=== PATIENT | female | born 1975 | race Caucasian/White ===

== ENCOUNTER 2017-09-16 19:21 | Observation (INO) | payer BC, OTHER ==
--- NOTE | 2017-09-16 20:33 | ED ---
Abdominal Pain HPI - General Chief Complaint: Abdominal Pain Stated Complaint: abd pain Time Seen by Provider: 09/16/17 20:33 Source: patient Mode of arrival: wheelchair Limitations: no limitations - History of Present Illness Initial Comments: Patient presents with right lower quadrant abdominal pain for approximately 2 hours. Patient states pain started while she was sitting in a chair watching TV. Patient states pain is constant aching, with intermittent sharp shooting. Patient states last vomiting yesterday was normal. States she does not feel constipated today. Denies diarrhea. Denies vaginal bleeding or discharge. Patient denies any urinary symptoms, including hematuria, hesitancy, frequency. Patient denies nausea, vomiting. Patient states she has history of umbilical hernia repair. MD Complaint: abdominal pain - Related Data Home Medications Medication Instructions Recorded Confirmed Biotin 5 mg PO DAILY 09/16/17 09/16/17 Cyanocobalamin (Vitamin B-12) 1,000 mcg PO DAILY 09/16/17 09/16/17 [Vitamin B-12] Thyroid,Pork [Thyroid] 30 mg PO DAILY 09/16/17 09/16/17 Allergies Allergy/AdvReac Type Severity Reaction Status Date / Time orange flavor Allergy Anaphylaxis Verified 09/16/17 20:53 Review of Systems ROS Statement: Those systems with pertinent positive or pertinent negative responses have been documented in the HPI. ROS Other: All systems not noted in ROS Statement are negative. Constitutional: Denies: fever, chills, weakness Eyes: Denies: vision change ENT: Denies: throat pain, congestion Respiratory: Denies: cough, dyspnea Cardiovascular: Denies: chest pain, palpitations Endocrine: Denies: fatigue Gastrointestinal: Reports: abdominal pain. Denies: nausea, vomiting, diarrhea, constipation, hematemesis, melena, hematochezia Genitourinary: Denies: urgency, dysuria, frequency, hematuria, discharge, abnormal menses Musculoskeletal: Denies: back pain, arthralgia, myalgia Skin: Denies: rash, change in color Neurological: Denies: headache, confusion Past Medical History Additional Past Medical History / Comment(s): HERNIA History of Any Multi-Drug Resistant Organisms: None Reported Past Surgical History: Section, Tonsillectomy Past Anesthesia/Blood Transfusion Reactions: Motion Sickness, Postoperative Nausea & Vomiting (PONV) Past Psychological History: No Psychological Hx Reported Smoking Status: Never smoker Past Alcohol Use History: None Reported Past Drug Use History: None Reported - Past Family History Father Family Medical History: Cancer General Exam - General Exam Comments Initial Comments: Sitting up on side of bed holding right lower quadrant. Smiling, calm, pleasant. Not ill appearing. Patient of significant pain when trying to lay flat on bed Limitations: no limitations General appearance: alert Head exam: Present: atraumatic, normocephalic Eye exam: Present: normal appearance, PERRL, EOMI ENT exam: Present: mucous membranes moist Neck exam: Present: normal inspection Respiratory exam: Present: normal lung sounds bilaterally. Absent: respiratory distress, wheezes, rales, rhonchi, stridor Cardiovascular Exam: Present: regular rate, normal rhythm GI/Abdominal exam: Present: soft, tenderness, guarding (Voluntary guarding right lower quadrant. Obese. Defects and umbilicus, no protruding hernia appreciated. Tenderness right lower quadrant, difficult to examine because of voluntary guarding of patient. Right groin nontender, no inguinal hernias appreciated.). Absent: distended, rebound Extremities exam: Present: normal inspection Back exam: Present: normal inspection Neurological exam: Present: alert, oriented X3 Psychiatric exam: Present: normal affect, normal mood Skin exam: Present: warm, dry, intact, normal color. Absent: rash, cyanosis, diaphoretic, erythema Course Vital Signs 09/16/17 09/16/17 19:48 21:42 Temperature 99 F 98.6 F Pulse Rate 85 89 Respiratory 20 18 Rate Blood Pressure 137/71 130/67 O2 Sat by Pulse 100 98 Oximetry Medical Decision Making - Medical Decision Making IV fluids, morphine, Zofran ordered. White blood cell count 11.9 Ultrasound of pelvis shows no acute process CAT scan shows signs of possible mild appendicitis, showed 6 cm ventral hernia containing fat, but no bowel. Patient reevaluated, states she still having pain, still has right lower quadrant tenderness. Spoke with general surgeon Dr. Baer, updated with patient condition results, states no surgical intervention at this time, agrees with observation and antibiotics. Spoke with Dr. Reyes, updated with patient condition results, surgical recommendations, agrees with observation. Requests surgery consult be placed to Dr. Guthrie. Patient updated with all results and plan. Abx ordered. - Lab Data Result diagrams: 09/16/17 21:20 09/16/17 21:20 Lab Results 09/16/17 09/16/17 09/16/17 Range/Units 21:20 21:20 21:20 WBC (3.8-10.6) k/uL RBC (3.80-5.40) m/uL Hgb (11.4-16.0) gm/dL Hct (34.0-46.0) % MCV (80.0-100.0) fL MCH (25.0-35.0) pg MCHC (31.0-37.0) g/dL RDW (11.5-15.5) % Plt Count (150-450) k/uL Neutrophils % % Lymphocytes % % Monocytes % % Eosinophils % % Basophils % % Neutrophils # (1.3-7.7) k/uL Lymphocytes # (1.0-4.8) k/uL Monocytes # (0-1.0) k/uL Eosinophils # (0-0.7) k/uL Basophils # (0-0.2) k/uL Sodium 141 (137-145) mmol/L Potassium 4.2 (3.5-5.1) mmol/L Chloride 103 (98-107) mmol/L Carbon Dioxide 20 L (22-30) mmol/L Anion Gap 18 mmol/L BUN 12 (7-17) mg/dL Creatinine 0.70 (0.52-1.04) mg/dL Est GFR (CKD-EPI)AfAm >90 (>60 ml/min/1.73 sqM) Est GFR (CKD-EPI)NonAf >90 (>60 ml/min/1.73 sqM) Glucose 97 (74-99) mg/dL Plasma Lactic Acid Roman (0.7-2.0) mmol/L Calcium 10.1 (8.4-10.2) mg/dL Urine Color Yellow Urine Appearance Cloudy H (Clear) Urine pH 5.5 (5.0-8.0) Ur Specific [place] 1.015 (1.001-1.035) Urine Protein Negative (Negative) Urine Glucose (UA) Negative (Negative) Urine Ketones 3+ H (Negative) Urine Blood Trace H (Negative) Urine Nitrite Negative (Negative) Urine Bilirubin Negative (Negative) Urine Urobilinogen <2.0 (<2.0) mg/dL Ur Leukocyte Esterase Moderate H (Negative) Urine RBC 3 (0-5) /hpf Urine WBC 14 H (0-5) /hpf Ur Squamous Epith Cells 2 (0-4) /hpf Urine HCG, Qual Not Detected (Not Detectd) 09/16/17 09/16/17 Range/Units 21:20 21:20 WBC 11.9 H (3.8-10.6) k/uL RBC 4.81 (3.80-5.40) m/uL Hgb 14.1 (11.4-16.0) gm/dL Hct 42.5 (34.0-46.0) % MCV 88.3 (80.0-100.0) fL MCH 29.3 (25.0-35.0) pg MCHC 33.2 (31.0-37.0) g/dL RDW 12.9 (11.5-15.5) % Plt Count 334 (150-450) k/uL Neutrophils % 77 % Lymphocytes % 14 % Monocytes % 7 % Eosinophils % 1 % Basophils % 0 % Neutrophils # 9.2 H (1.3-7.7) k/uL Lymphocytes # 1.6 (1.0-4.8) k/uL Monocytes # 0.8 (0-1.0) k/uL Eosinophils # 0.1 (0-0.7) k/uL Basophils # 0.0 (0-0.2) k/uL Sodium (137-145) mmol/L Potassium (3.5-5.1) mmol/L Chloride (98-107) mmol/L Carbon Dioxide (22-30) mmol/L Anion Gap mmol/L BUN (7-17) mg/dL Creatinine (0.52-1.04) mg/dL Est GFR (CKD-EPI)AfAm (>60 ml/min/1.73 sqM) Est GFR (CKD-EPI)NonAf (>60 ml/min/1.73 sqM) Glucose (74-99) mg/dL Plasma Lactic Acid Roman 1.1 (0.7-2.0) mmol/L Calcium (8.4-10.2) mg/dL Urine Color Urine Appearance (Clear) Urine pH (5.0-8.0) Ur Specific [place] (1.001-1.035) Urine Protein (Negative) Urine Glucose (UA) (Negative) Urine Ketones (Negative) Urine Blood (Negative) Urine Nitrite (Negative) Urine Bilirubin (Negative) Urine Urobilinogen (<2.0) mg/dL Ur Leukocyte Esterase (Negative) Urine RBC (0-5) /hpf Urine WBC (0-5) /hpf Ur Squamous Epith Cells (0-4) /hpf Urine HCG, Qual (Not Detectd) Disposition Clinical Impression: RLQ abdominal pain Disposition: ADMITTED IP TO THIS [facility] Condition: Good Is patient prescribed a controlled substance at discharge?: No Referrals: Valentin Reyes DO [Primary Care Provider] - 1-2 days
[2017-09-16] MEDS ORDERED: SODIUM CHLORIDE 0.9% 1,000 ML IV STA (21:08)
[2017-09-16] MEDS ORDERED: MORPHINE SULFATE 4MG/4ML SYRG IVP ONE (21:08)
[2017-09-16] MEDS: ONDANSETRON 4 MG/2 ML VIAL IVP STA (21:29)
[2017-09-16 21:39] LABS: Appearance,Urine Cloudy (Clear); Bilirubin,Urine Negative (Negative); Blood,Urine Trace (Negative); Color,Urine Yellow; Glucose,Urine (UA) Negative (Negative); Ketones,Urine 3+ (Negative); Leukocyte Esterase,Urine Moderate (Negative); Nitrite,Urine Negative (Negative); PH, Urine 5.5 (5.0-8.0); Protein,Urine Negative (Negative); RBC,Urine 3 /hpf (0-5); Specific Gravity,Urine 1.015 (1.001-1.035); Squamous Epithelial Cell,Urine 2 /hpf (0-4); Urobilinogen,Urine <2.0 mg/dL (<2.0); WBC,Urine 14 /hpf (0-5)
[2017-09-16 21:40] LABS: Basophils % (A) 0 %; Eosinophils # (A) 0.1 k/uL (0-0.7); Eosinophils % (A) 1 %; HCT 42.5 % (34.0-46.0); HGB 14.1 gm/dL (11.4-16.0); Lymphocytes # (A) 1.6 k/uL (1.0-4.8); Lymphocytes % (A) 14 %; MCH 29.3 pg (25.0-35.0); MCHC 33.2 g/dL (31.0-37.0); MCV 88.3 fL (80.0-100.0); Mean Platelet Volume 8.1; Monocytes # (A) 0.8 k/uL (0-1.0); Monocytes % (A) 7 %; Neutrophils # (A) 9.2 k/uL (1.3-7.7); Neutrophils % (A) 77 %; Platelet Count 334 k/uL (150-450); RBC 4.81 m/uL (3.80-5.40); RDW 12.9 % (11.5-15.5); WBC 11.9 k/uL (3.8-10.6)
[2017-09-16 22:07] LABS: Anion Gap 18 mmol/L; Blood Urea Nitrogen 12 mg/dL (7-17); Calcium 10.1 mg/dL (8.4-10.2); Carbon Dioxide 20 mmol/L (22-30); Chloride 103 mmol/L (98-107); Glucose 97 mg/dL (74-99); Potassium 4.2 mmol/L (3.5-5.1); Sodium 141 mmol/L (137-145)
--- NOTE | 2017-09-16 22:30 | CT ---
EXAMINATION TYPE: CT abdomen pelvis wo con DATE OF EXAM: 09/16/2017 COMPARISON: NONE HISTORY: RLQ pain CT DLP: 1043.7 mGycm Automated exposure control for dose reduction was used. TECHNIQUE: Helical acquisition of images was performed from the lung bases through the pelvis. FINDINGS: Lung bases are clear. There is no pleural effusion. Heart size is normal. Liver spleen pancreas appear normal. Gallbladder appears normal. Bile ducts are not dilated. There is ventral hernia that contains omental fat. There is no adrenal mass. Kidneys have normal size and contour. There is no hydronephrosis. Ureters a re not dilated. There is no retroperitoneal adenopathy. There is no ascites. Bladder distends smoothl y. Uterus appears normal. There is no evidence of pelvic mass. I see no intestinal wall thickening. There are no dilated loops. There is very minimal fat stranding around the appendix. Appendix measures 7 to 8 mm. I see no bony destructive process. There is narrowi ng of L5-S1 disc space. IMPRESSION: THE APPENDIX IS BORDERLINE ENLARGED AND THERE IS VERY MINIMAL SUBTLE FAT STRANDING AROUND THE APPENDI X THAT COULD RELATE TO MILD APPENDICITIS. 6 CM MIDLINE VENTRAL HERNIA THAT CONTAINS OMENTAL FAT.
--- NOTE | 2017-09-16 22:47 | US ---
EXAMINATION TYPE: US transvaginal DATE OF EXAM: 09/16/2017 COMPARISON: NONE CLINICAL HISTORY: RLQ pain. TECHNIQUE: Transvaginal (TV). Date of LMP: 09/03/2017 EXAM MEASUREMENTS: Uterus: 8.4 x 4.3 x 6.0 cm Endometrial Stripe: 0.4 cm Right Ovary: 2.8 x 1.3 x 2.8 cm Left Ovary: 3.5 x 1.2 x 2.6 cm 1. Uterus: Anteverted 2. Endometrium: wnl 3. Right Ovary: wnl 4. Left Ovary: wnl Spectral, color and waveform doppler imaging shows good arterial and venous flow within the ovaries ; there is no evidence for ovarian torsion. 5. Bilateral Adnexa: wnl 6. Posterior cul-de-sac: wnl IMPRESSION: Normal transvaginal pelvic sonogram.
[2017-09-17] MEDS ORDERED: MORPHINE ORAL SOLN 10 MG/5 ML CUP PO PRN (00:43)
[2017-09-17] MEDS ORDERED: NALOXONE 0.4 MG/ML 1 ML VIAL IV PRN (00:43)
[2017-09-17] MEDS ORDERED: cefOXitin IN SWFI 2 GM/10 ML SYRINGE IVP STA (00:51)
[2017-09-17 02:05] VITALS: BMI 34.7
[2017-09-17] MEDS: SODIUM CHLORIDE 0.9% 1,000 ML IV SCH ×2 (02:11→20:01)
--- NOTE | 2017-09-17 09:48 | P.GSCN ---
History of Present Illness Consult date: 09/17/17 Reason for Consult: Right lower quadrant pain History of present illness: 42-year-old female being seen at the request of the attending for a surgical eval for right lower quadrant abdominal pain onset approximately 2-3 hours prior to admission. Patient stated that there was no change in diet ,activity or medication she was in her usual state of health when the patient developed a sudden onset of right lower quadrant pain. Described the pain as a sharp intermittent shooting across the right lower abdomen radiating up. Patient denies any change in bowel habits denies any vaginal bleeding or discharge. Denies any urinary symptoms. No blood noted no urgency frequency burning on urination. Denied any nausea vomiting. Patient states since being admitted the pain has persisted. Patient did have a transvaginal ultrasound to evaluate the right lower quadrant pain was normal sonogram. Computed tomography scan of the abdomen pelvis without contrast the report was reviewed the appendix is borderline enlarged very subtle fat stranding around the appendix could relate to mild appendicitis the white count 11.9 urine clear electrolytes within normal limits temp 98.2 low-grade temp on admission of 99 abdominal pain persist right lower quadrant Patient's past surgical history 45 year prior umbilical hernia repair, , tonsillectomy, Past medical history hypothyroid, B12 deficient Review of Systems Essentially unremarkable except as mentioned in the present illness Past Medical History Past Medical History: Thyroid Disorder Additional Past Medical History / Comment(s): HERNIA, hashimotos History of Any Multi-Drug Resistant Organisms: None Reported Past Surgical History: Section, Tonsillectomy Past Anesthesia/Blood Transfusion Reactions: Motion Sickness, Postoperative Nausea & Vomiting (PONV) Past Psychological History: No Psychological Hx Reported Additional Psychological History / Comment(s): SEVERE ANXIETY IN HOSPITAL SETTING.STATED "VERY ANXIOUS IF A CATHETER HAS TO BE INSERTED DUE TO HX OF SEXUAL ABUSE A CHILD." Smoking Status: Never smoker Past Alcohol Use History: None Reported Past Drug Use History: None Reported - Past Family History Father Family Medical History: Cancer Medications and Allergies Home Medications Medication Instructions Recorded Confirmed Type Biotin 5 mg PO DAILY 09/16/17 09/16/17 History Cyanocobalamin (Vitamin B-12) 1,000 mcg PO DAILY 09/16/17 09/16/17 History [Vitamin B-12] Thyroid,Pork [Thyroid] 30 mg PO DAILY 09/16/17 09/16/17 History Allergies Allergy/AdvReac Type Severity Reaction Status Date / Time orange flavor Allergy Anaphylaxis Verified 09/16/17 20:53 Surgical - Exam Vital Signs Temp Pulse Resp BP Pulse Ox 99 F 85 20 137/71 100 09/16/17 19:48 09/16/17 19:48 09/16/17 19:48 09/16/17 19:48 09/16/17 19:48 GENERAL APPEARANCE: 42-year-old female patient is alert, sitting up in bed continues to report having right lower quadrant abdominal pain. Medication effective for pain control VITAL SIGNS: Reviewed HEENT: Head is normocephalic and atraumatic. Pupils are equal and reactive. The nares are patent. Oropharynx is clear without lesions. NECK: Supple without lymphadenopathy. Traches midline. HEART: S1, S2. Regular rate and rhythm. Denying chest pain no murmur noted LUNGS: No crackles or wheezes are heard. Adequate air movement bilaterally ABDOMEN: Soft, mild right lower quadrant abdominal tenderness nondistended with good bowel sounds. No peritoneal signs. No palpable organomegaly or masses. No nausea no vomiting no stooling no difficulty in urinating EXTREMITIES: Normal skin color and turgor. No cyanosis, rash, ulceration, clubbing or edema. Radial pedal pulses are 2/4 bilaterally. NEUROLOGICAL: No focal deficits. Strength and sensation are grossly intact. Results - Labs 09/16/17 21:20 09/16/17 21:20 Abnormal Lab Results - Last 24 Hours (Table) 09/16/17 09/16/17 09/16/17 Range/Units 21:20 21:20 21:20 WBC 11.9 H (3.8-10.6) k/uL Neutrophils # 9.2 H (1.3-7.7) k/uL Carbon Dioxide 20 L (22-30) mmol/L Urine Appearance Cloudy H (Clear) Urine Ketones 3+ H (Negative) Urine Blood Trace H (Negative) Ur Leukocyte Esterase Moderate H (Negative) Urine WBC 14 H (0-5) /hpf Diabetes panel 09/16/17 Range/Units 21:20 Sodium 141 (137-145) mmol/L Potassium 4.2 (3.5-5.1) mmol/L Chloride 103 (98-107) mmol/L Carbon Dioxide 20 L (22-30) mmol/L BUN 12 (7-17) mg/dL Creatinine 0.70 (0.52-1.04) mg/dL Glucose 97 (74-99) mg/dL Calcium 10.1 (8.4-10.2) mg/dL Calcium panel 09/16/17 Range/Units 21:20 Calcium 10.1 (8.4-10.2) mg/dL Pituitary panel 09/16/17 Range/Units 21:20 Sodium 141 (137-145) mmol/L Potassium 4.2 (3.5-5.1) mmol/L Chloride 103 (98-107) mmol/L Carbon Dioxide 20 L (22-30) mmol/L BUN 12 (7-17) mg/dL Creatinine 0.70 (0.52-1.04) mg/dL Glucose 97 (74-99) mg/dL Calcium 10.1 (8.4-10.2) mg/dL Adrenal panel 09/16/17 Range/Units 21:20 Sodium 141 (137-145) mmol/L Potassium 4.2 (3.5-5.1) mmol/L Chloride 103 (98-107) mmol/L Carbon Dioxide 20 L (22-30) mmol/L BUN 12 (7-17) mg/dL Creatinine 0.70 (0.52-1.04) mg/dL Glucose 97 (74-99) mg/dL Calcium 10.1 (8.4-10.2) mg/dL Assessment and Plan Assessment: Impression Present on admission right lower quadrant pain suspect likely due to acute appendicitis Present on admission leukocytosis low-grade temp likely due to appendicitis not ruled out CAT scan abdomen and pelvis without contrast report indicates appendix is borderline enlarged could relate to mild appendicitis Plan Patient will be scheduled today for laparoscopic appendectomy per IV fluid for hydration Nothing by mouth for planned procedure Pain control Resume home meds when appropriate DVT and GI prophylaxis Surgical consultation note dictated for The above impression and plan of care have been discussed and directed by signing physician. Zoe Rodas nurse practitioner acting as scribe for signing physician.
[2017-09-17] MEDS ORDERED: MORPHINE SULFATE 4MG/4ML SYRG IVP PRN (09:50)
[2017-09-17] MEDS: PANTOPRAZOLE 40 MG/10 ML VIAL IVP SCH (10:34)
[2017-09-17] MEDS ORDERED: IV FLUID CONTINUATION 1,000 ML IV ONE (11:12)
[2017-09-17] MEDS ORDERED: DEXAMETHASONE SOD PHOSPHATE 10 MG/ML 1 ML VIAL IV ONE (11:32)
[2017-09-17] MEDS: ONDANSETRON 4 MG/2 ML VIAL IVP STA (11:32)
[2017-09-17] MEDS ORDERED: SCOPOLAMINE 1.5MG/72HR PATCH TRANSDERM ONE (11:33)
[2017-09-17] MEDS ORDERED: PROPOFOL 10 MG/ML 20 ML VIAL IV ONE (12:36)
[2017-09-17] MEDS ORDERED: ROCURONIUM BROMIDE 10 MG/ML 10 ML VIAL IV ONE (12:36)
[2017-09-17] MEDS ORDERED: LIDOCAINE 1% INJ 10MG/ML (20 ML MDV) ONE (12:36)
[2017-09-17] MEDS ORDERED: PHENYLEPHRINE-0.9% NACL SYG 1 MG/10 ML SYRINGE ONE (12:36)
[2017-09-17] MEDS ORDERED: LACTATED RINGERS 1,000 ML IV ONE ×2 (12:36→14:33)
[2017-09-17] MEDS ORDERED: KETOROLAC 30 MG/ML 1 ML VIAL ONE (12:36)
[2017-09-17] MEDS ORDERED: GLYCOPYRROLATE 0.2 MG/ML 2 ML VIAL ONE (12:36)
[2017-09-17] MEDS ORDERED: MIDAZOLAM 2 MG/2 ML VIAL ONE (12:36)
[2017-09-17] MEDS ORDERED: SUCCINYLCHOLINE CHLORIDE 100 MG/5 ML SYR IV ONE (12:36)
[2017-09-17] MEDS ORDERED: NEOSTIGMINE 1 MG/ML 10 ML VIAL ONE (12:36)
[2017-09-17] MEDS ORDERED: fentaNYL (PF) 50 MCG/ML 2 ML AMP ONE (12:36)
--- NOTE | 2017-09-17 13:12 | P.OP ---
Date of Procedure: 09/17/17 Preoperative Diagnosis: Acute appendicitis Postoperative Diagnosis: Acute appendicitis Procedure(s) Performed: Laparoscopic appendectomy Anesthesia: RICKY Surgeon: Ha Guthrie Estimated Blood Loss (ml): 2 Pathology: other (Appendix) Condition: stable Disposition: PACU Description of Procedure: The patient's placed on the operating table in the supine position. The patient received general anesthesia. The abdomen was prepped and draped in the usual sterile fashion. The skin was anesthetized 1% local Xylocaine at the trocar sites. Using an 11 blade the skin was incised at the umbilicus. The umbilicus was grasped with a [place] clamp and then a Veress needle was placed into the peritoneal cavity. Position of the Veress needle was confirmed with positive drop test. After adequate insufflation a 5 mm trocar was placed into the peritoneal cavity. The abdomen was further insufflated. And then the laparoscope was placed in the peritoneal cavity. Next a 5 mm trocar was placed in the midline suprapubic position. And then a 10 mm trocar was placed in the midline epigastric position. The patient was rotated with the right side up and in Trendelenburg. The appendix was visualized. The appendix appeared to be inflamed. The appendix was grasped and then using the Harmonic scissors the mesoappendix was divided. A PDS Endoloop was then placed around the base of the appendix. And then the appendix was divided using Harmonic scissors. The appendix was placed into an Endo Catch and brought out through the 10 mm trocar site. The abdomen was irrigated. There is no bleeding seen. The trochars withdrawn. The skin was closed interrupted 3-0 Monocryl suture. Dermabond dressing was applied. Patient was sent to recovery room in stable condition.
[2017-09-17] MEDS ORDERED: ONDANSETRON 4 MG/2 ML VIAL IVP ONE (13:45)
[2017-09-17] MEDS ORDERED: fentaNYL (PF) 50 MCG/ML 2 ML AMP IVP ONE ×3 (13:46→14:32)
[2017-09-17] MEDS ORDERED: METOCLOPRAMIDE 5 MG/ML 2 ML VIAL IVP ONE (14:31)
--- NOTE | 2017-09-17 15:19 | P.HPIM ---
History of Present Illness H&P Date: 09/17/17 Chief Complaint: Abdominal pain 42-year-old female who presented to the emergency room with a chief complaint of abdominal pain x 2 hours. Patient states she was relaxing watching TV when she began to experience right lower abdominal pain. She describes the pain as constant with sharp intermittent pains. Patient denies shortness of breath. Denies coughing. Denies nausea or vomiting. Denies chest pain or pressure. CT of abdomen and pelvis: Appendix is borderline enlarged and there is very minimal subtle fat stranding around the appendix that could relate to mild appendicitis. 6 cm midline ventral hernia that contains omental fat. Transvaginal US: unremarkable Laboratory data: WBC 11.9. Hemoglobin 14.1. Platelet count 334. Sodium 141. Potassium 4.2. BUN 12. Creatinine 0.70. Glucose 97. Lactic acid 1.1. Urinalysis reveals: Cloudy yellow urine, pH 5.5, specific gravity 1.015, 3+ ketones, trace blood, moderate leukocyte esterase, urine RBCs 3, WBC 14 Urine HCG negative The patient was admitted to the hospital under the care of Dr. Reyes. Consultations were placed to Dr. Guthrie, general surgery. Review of Systems GENERAL: Patient denies fever. Denies chills. EYES: Denies blurred vision. Denies vision changes. Denies eye pain. EARS, NOSE, MOUTH, & THROAT: Denies headache. Denies sore throat. Denies ear pain. RESPIRATORY: Denies cough. Denies shortness of breath. Denies sputum production. Denies hemoptysis. CARDIOVASCULAR: Denies chest pain or pressure. Denies palpitations. Denies arrhythmias. GASTROINTESTINAL: Positive for abdominal pain. Denies diarrhea. Denies constipation. Denies nausea. Denies vomiting. Denies heartburn. Denies blood in the stool. GENITOURINARY: Denies urinary frequency. Denies burning. Denies dysuria. Denies cloudy urine. Denies blood in the urine. MUSCULOSKELETAL: Denies myalgias. Denies joint swelling. Denies decreased range of motion beyond patients baseline. INTEGUMENTARY: Denies pruitis. Denies rash. PSYCHIATRIC: Denies suicidal or homicial ideations. ENDOCRINE: Denies weight change. Denies polydipsia. Denies polyuria. HEMATOLOGIC: Denies bleeding disorders. Past Medical History Past Medical History: Thyroid Disorder Additional Past Medical History / Comment(s): HERNIA, hashimotos History of Any Multi-Drug Resistant Organisms: None Reported Past Surgical History: Section, Tonsillectomy Past Anesthesia/Blood Transfusion Reactions: Motion Sickness, Postoperative Nausea & Vomiting (PONV) Past Psychological History: No Psychological Hx Reported Additional Psychological History / Comment(s): SEVERE ANXIETY IN HOSPITAL SETTING.STATED "VERY ANXIOUS IF A CATHETER HAS TO BE INSERTED DUE TO HX OF SEXUAL ABUSE A CHILD." Smoking Status: Never smoker Past Alcohol Use History: None Reported Past Drug Use History: None Reported - Past Family History Father Family Medical History: Cancer Medications and Allergies Home Medications Medication Instructions Recorded Confirmed Type Biotin 5 mg PO DAILY 09/16/17 09/16/17 History Cyanocobalamin (Vitamin B-12) 1,000 mcg PO DAILY 09/16/17 09/16/17 History [Vitamin B-12] Thyroid,Pork [Thyroid] 30 mg PO DAILY 09/16/17 09/16/17 History Allergies Allergy/AdvReac Type Severity Reaction Status Date / Time orange flavor Allergy Anaphylaxis Verified 09/16/17 20:53 Physical Exam Vitals: Vital Signs Temp Pulse Pulse Resp BP BP Pulse Ox 09/17/17 05:30 98.2 F 75 16 95/64 97 09/17/17 01:58 98.6 F 75 18 112/63 96 09/17/17 01:03 98.2 F 87 18 127/64 99 09/16/17 21:42 98.6 F 89 18 130/67 98 09/16/17 19:48 99 F 85 20 137/71 100 Intake and Output 09/16/17 09/17/17 09/17/17 22:59 06:59 14:59 Output Total 550 Balance -550 Output: Urine 550 Other: Weight 99.79 kg 100.7 kg GENERAL: This is a 42-year-old female in no apparent distress at the time of examination. Pleasant and cooperative. HEENT: Head is atraumatic, normocephalic. Pupils are equal, round, and reactive to light. Sclerae anicteric. Conjunctivae are clear. Mucus membranes of the mouth are moist. Neck is supple. RESPIRATORY: Clear to ausculation. No wheezes, rales, or rhonchi. No use of accessory muscles. Patient maintaining oxygen saturation greater than 92%. No chest wall tenderness is noted on palpation or with deep breathing. CARDIOVASCULAR: Regular rate and rhythm. S1 and S2 noted. No systolic or diastolic murmur auscultated. No JVD noted. No S3 or S4 noted. GASTROINTESTINAL: No distention noted. Abdomen soft and round. Normal active bowel sounds auscultated x 4 quadrants. Pain and tenderness noted upon palpation. INTEGUMENTARY: No cyanosis. No jaundice. No rashes noted. No cellulitis noted. EXTREMITIES: 2+ peripheral pulses. No evidence of peripheral edema. No calf tenderness noted. NEUROLOGIC: Cranial nerves II-XII intact. PSYCHIATRIC: Awake, alert, and oriented X 3. Appropriate affect. Intact judgement and insight. Results CBC & Chem 7: 09/16/17 21:20 09/16/17 21:20 Labs: Abnormal Lab Results - Last 24 Hours (Table) 09/16/17 09/16/17 09/16/17 Range/Units 21:20 21:20 21:20 WBC 11.9 H (3.8-10.6) k/uL Neutrophils # 9.2 H (1.3-7.7) k/uL Carbon Dioxide 20 L (22-30) mmol/L Urine Appearance Cloudy H (Clear) Urine Ketones 3+ H (Negative) Urine Blood Trace H (Negative) Ur Leukocyte Esterase Moderate H (Negative) Urine WBC 14 H (0-5) /hpf Thrombosis Risk Factor Assmnt - Choose All That Apply Any of the Below Risk Factors Present?: Yes Each Factor Represents 1 point: Age 41-60 years, Obesity (BMI >25) Other Risk Factors: No Thrombosis Risk Factor Assessment Total Risk Factor Score: 2 Thrombosis Risk Factor Assessment Level: Low Risk Assessment and Plan Plan: ASSESSMENT: Abdominal pain, present on admission, may be secondary to acute appendicitis Mild leukocytosis, present on admission, may be secondary to acute appendicitis Ventral hernia, measuring 6cm History of hypothyroidism History of umbilical hernia repair Obesity: BMI 34.8 PLAN: Dr. Guthrie on consult. Appreciate recommendations and input Patient scheduled for laparoscopic appendectomy today NPO Pain control IV fluids Home meds as appropriate. Resume after OR Monitor labs GI prophylaxis: Protonix 40 mg IV Daily DVT prophylaxis: SCDs to bilateral lower extremities Monitor vital signs and address as appropriate Discharge planning: Patient to return home when stable Further recommendations pending patient's course Nurse practitioner note has been reviewed by physician. Signing provider agrees with the documented findings, assessment, and plan of care.
[2017-09-17] MEDS: MORPHINE SULFATE 4MG/4ML SYRG IVP PRN ×2 (17:35→22:29)
[2017-09-18] MEDS: SODIUM CHLORIDE 0.9% 1,000 ML IV SCH (05:54)
[2017-09-18] MEDS: PANTOPRAZOLE 40 MG/10 ML VIAL IVP SCH (07:48)
[2017-09-18 08:07] VITALS: BP 99/64; PULSE 54; RESP 18; TEMP 97.8
[2017-09-18] MEDS ORDERED: ACETAMINOPHEN TAB 325 MG TAB PO PRN (08:52)
[2017-09-18] MEDS ORDERED: HYDROcodone/APAP 7.5-325MG 1 EACH TAB PO PRN (08:53)
[2017-09-18] MEDS ORDERED: NON-FORMULARY DRUG (Biotin [Biotin] 5 MG) PO SCH (09:00)
[2017-09-18] MEDS ORDERED: THYROID, PORK 30 MG TAB PO SCH (09:00)
--- NOTE | 2017-09-18 10:49 | P.PN ---
Subjective Progress Note Date: 09/18/17 42-year-old female seen this morning on rounds no new events. Patient states pain medication effective for pain control. Surgical dressing sites dry. Abdomen soft tolerating a diet states passing gas and has been up ambulating in the room and espinoza Patient's postop September 17 laparoscopic appendectomy for acute appendicitis Objective - Vital Signs Vital signs: Vital Signs Temp 97.8 F 09/18/17 07:54 Pulse 54 L 09/18/17 07:54 Resp 18 09/18/17 07:54 BP 99/64 09/18/17 07:54 Pulse Ox 97 09/18/17 07:54 Intake & Output 09/17/17 09/18/17 09/18/17 18:59 06:59 18:59 Intake Total 1550 200 400 Output Total 1110 1375 200 Balance 440 -1175 200 Intake: IV 1550 Oral 200 400 Output: Urine 1100 1375 200 Estimated Blood Loss 10 - Exam Physical exam 42-year-old female sitting up in bed appears in no acute distress tolerating a diet Lungs adequate air movement bilaterally on room air Heart S1-S2 audible and regular Abdomen soft nondistended surgical dressing sites dry passing gas no nausea no vomiting tolerating a diet urinating no difficulty Extremities no edema noted. - Labs CBC & Chem 7: 09/16/17 21:20 09/16/17 21:20 Assessment and Plan Assessment: Impression Present on admission right lower quadrant pain suspect likely due to acute appendicitis Present on admission leukocytosis low-grade temp likely due to appendicitis not ruled out CAT scan abdomen and pelvis without contrast report indicates appendix is borderline enlarged could relate to mild appendicitis Status post laparoscopic appendectomy for acute appendicitis done 17 of September Plan From a surgical perspective patient is felt to be stable to be discharged home defer to the timing of the discharge to the attending IV fluid for hydration Pain control Resume home meds when appropriate DVT and GI prophylaxis dictated for The above impression and plan of care have been discussed and directed by signing physician. Zoe Rodas nurse practitioner acting as scribe for signing physician.
--- NOTE | 2017-09-18 13:52 | P.DS ---
Providers Date of admission: 09/17/17 00:44 Expected date of discharge: 09/18/17 Attending physician: Valentin Reyes Consults: 09/17/17 00:43 Consult Physician Stat Consulting Provider: Ha Guthrie Consult Reason/Comments: RLQ pain, poss appendicitis Do you want consulting provider notified?: Yes, Notify in am Primary care physician: Valentin Reyes Hospital Course: 42-year-old female who presented to the emergency room with a chief complaint of abdominal pain x 2 hours. Patient states she was relaxing watching TV when she began to experience right lower abdominal pain. She describes the pain as constant with sharp intermittent pains. Patient denies shortness of breath. Denies coughing. Denies nausea or vomiting. Denies chest pain or pressure. CT of abdomen and pelvis: Appendix is borderline enlarged and there is very minimal subtle fat stranding around the appendix that could relate to mild appendicitis. 6 cm midline ventral hernia that contains omental fat. Transvaginal US: unremarkable Laboratory data: WBC 11.9. Hemoglobin 14.1. Platelet count 334. Sodium 141. Potassium 4.2. BUN 12. Creatinine 0.70. Glucose 97. Lactic acid 1.1. Urinalysis reveals: Cloudy yellow urine, pH 5.5, specific gravity 1.015, 3+ ketones, trace blood, moderate leukocyte esterase, urine RBCs 3, WBC 14 Urine HCG negative The patient underwent laparoscopic appendectomy on 09/17/[address] Guthrie. Patient had no post op complications. Pain is well controlled. She is cleared for discharge home per Dr. Reyes when cleared with surgery. DISCHARGE DIAGNOSIS: Abdominal pain, present on admission, may be secondary to acute appendicitis, resolved S/P laparoscopic appendectomy on 09/17/[address] Guthrie Mild leukocytosis, present on admission, may be secondary to acute appendicitis , no signs of sepsis Ventral hernia, measuring 6cm History of hypothyroidism History of umbilical hernia repair Obesity: BMI 34.8 Nurse practitioner note has been reviewed by physician. Signing provider agrees with the documented findings, assessment, and plan of care. Patient Condition at Discharge: Good Plan - Discharge Summary Discharge Rx Participant: Yes New Discharge Prescriptions: New Acetaminophen Tab [Tylenol Tab] 650 mg PO Q6H #30 tablet Continue Thyroid,Pork [Thyroid] 30 mg PO DAILY Cyanocobalamin (Vitamin B-12) [Vitamin B-12] 1,000 mcg PO DAILY Biotin 5 mg PO DAILY Discharge Medication List Biotin 5 mg PO DAILY 09/16/17 [History] Cyanocobalamin (Vitamin B-12) [Vitamin B-12] 1,000 mcg PO DAILY 09/16/17 [ History] Thyroid,Pork [Thyroid] 30 mg PO DAILY 09/16/17 [History] Acetaminophen Tab [Tylenol Tab] 650 mg PO Q6H #30 tablet 09/18/17 [Rx] Follow up Appointment(s)/Referral(s): Valentin Reyes DO [Primary Care Provider] - 1 Week Ha Guthrie MD [STAFF PHYSICIAN] - 2 Weeks Discharge Disposition: HOME SELF-CARE
== END 2017-09-18 11:02 | disposition home or self-care (01) ==
LOC: EC 19:21 → 6PED 09-17 00:44
PROVIDERS: ADMIT Family Medicine; ATTEND Family Medicine
DX: R10.31 Right lower quadrant pain (principal); D72.829 Elevated white blood cell count, unspecified; R50.9 Fever, unspecified; K43.9 Ventral hernia without obstruction or gangrene; E06.3 Autoimmune thyroiditis; E66.9 Obesity, unspecified; Z80.9 Family history of malignant neoplasm, unspecified; K35.80 Unspecified acute appendicitis; E53.8 Deficiency of other specified B group vitamins; Z79.890 Hormone replacement therapy; Z91.02 Food additives allergy status; Z68.34 Body mass index [BMI] 34.0-34.9, adult; Z62.810 Personal history of physical and sexual abuse in childhood
CPT/HCPCS: 36415; 74176; 76830; 80048; 81001; 81025; 83605; 85025; 88304; 93975; 96361; 96374; 96375; 96376; 99285

== ENCOUNTER → 2017-11-27 | Outpatient (CLI) | payer BC ==
--- NOTE | 2017-11-28 10:36 | NM ---
EXAMINATION TYPE: NM thyroid image w uptake DATE OF EXAM: 11/28/2017 COMPARISON: NONE HISTORY: 42-year-old female 1.3 cm right thyroid nodule TECHNIQUE: Thyroid iodine uptake is calculated and images performed after the oral administration of 325 uCi 1-123 Capsule. FINDINGS: Thyroid scan images show possible cold nodule in the right midpole. This should be correlated as to t he location of the patient's known 1.3 cm right thyroid nodule. There is mild generalized increased u ptake throughout the right lobe of the thyroid gland is compared to the left. Mild heterogeneous upta ke bilaterally. The 4 hour iodine uptake is calculated at 14.7% (normal range 8-14%). The 24-hour iodine uptake is ca lculated at 28.7% (normal range 15-35%). IMPRESSION: 1. Somewhat heterogeneous uptake throughout the thyroid gland with slight asymmetrically greater upta ke in the right lobe. The iodine uptake is borderline elevated at 4 hours but normal at 24 hours. Cor relate with TFTs to assess for any potential mild or subclinical hyperthyroidism. 2. Correlate as to the location of the patient's known right-sided 1.3 cm nodule as there is a possib le cold nodule in the mid right lobe. Cold nodules can be biopsied if their size and morphology meets criteria.
== END | disposition home or self-care (01) ==
LOC: RADNMMAIN 11-20 09:37
PROVIDERS: ATTEND Family Medicine
DX: E04.1 Nontoxic single thyroid nodule (principal); E06.3 Autoimmune thyroiditis
CPT/HCPCS: 78014; A9516

== ENCOUNTER 2017-12-19 12:17 | Day surgery (SDC) | payer BC ==
[2017-12-19 12:37] VITALS: BP 111/74; PULSE 70; RESP 20; TEMP 98.7
--- NOTE | 2017-12-19 14:32 | US ---
Discontinued fine-needle aspiration HISTORY: Magaly's thyroiditis, thyroid nodule Real-time ultrasound was performed. Discrete nodule is not evident within the right lobe, the gland i s diffusely heterogeneous. IMPRESSION: Discontinued fine-needle aspiration, follow-up is recommended to assess for stability.
== END 2017-12-19 12:40 | disposition home or self-care (01) ==
LOC: RADPROMAIN 12:17
PROVIDERS: ATTEND Family Medicine
DX: E06.3 Autoimmune thyroiditis (principal); E04.1 Nontoxic single thyroid nodule; Z53.9 Procedure and treatment not carried out, unspecified reason
CPT/HCPCS: 76536

== ENCOUNTER 2019-10-22 15:22 | Emergency (ER) | payer BC ==
[2019-10-22 15:27] VITALS: TEMP 98.8
[2019-10-22] MEDS ORDERED: KETOROLAC 60 MG/2 ML VIAL IVP STA (15:39)
--- NOTE | 2019-10-22 15:49 | ED ---
General Adult HPI - General Chief complaint: Chest Pain Stated complaint: Chest pain Source: patient, RN notes reviewed, old records reviewed Mode of arrival: ambulatory Limitations: no limitations - History of Present Illness Initial comments: This is a 44-year-old female who presents emergency department stating that she was pulling weeds then she went to stand up and felt extremely sharp pain in her chest just left of the sternum she states it hurts now to move her arms and her chest it hurts to take a deep breath there and it also hurts to touch there. Patient denies any pain she just at rest and not moving she denies any shortness of breath or difficulty breathing. Patient denies any fever chills or cough. Patient denies abdominal pain patient with nausea vomiting diarrhea. Patient denies any lightheadedness or dizziness. Patient denies any swelling to legs or calf tenderness. - Related Data Home Medications Medication Instructions Recorded Confirmed Ibuprofen 800 mg PO DIRECTED PRN 12/24/17 12/24/17 What Job Titles Mean Thyroid 30 mg PO DAILY 12/24/17 12/24/17 Previous Rx's Medication Instructions Recorded Ketorolac [Toradol] 10 mg PO Q6HR #15 tab 10/22/19 Allergies Allergy/AdvReac Type Severity Reaction Status Date / Time orange flavor Allergy swollen Verified 10/22/19 15:27 tongue Review of Systems ROS Statement: Those systems with pertinent positive or pertinent negative responses have been documented in the HPI. ROS Other: All systems not noted in ROS Statement are negative. Past Medical History Past Medical History: Thyroid Disorder Additional Past Medical History / Comment(s): HERNIA, hashimotos History of Any Multi-Drug Resistant Organisms: None Reported Past Surgical History: Section, Hernia Repair, Tonsillectomy Additional Past Surgical History / Comment(s): thyroid biopsy scheduled Past Anesthesia/Blood Transfusion Reactions: Motion Sickness, Postoperative Nausea & Vomiting (PONV) Past Psychological History: No Psychological Hx Reported Smoking Status: Never smoker Past Alcohol Use History: None Reported Past Drug Use History: None Reported - Past Family History Father Family Medical History: Cancer General Exam - General Exam Comments Initial Comments: GENERAL: Patient is well-developed and well-nourished. Patient is nontoxic and well- hydrated and is in mild distress. ENT: Neck is soft and supple. No significant lymphadenopathy is noted. Oropharynx is clear. Moist mucous membranes. Neck has full range of motion without eliciting any pain. EYES: The sclera were anicteric and conjunctiva were pink and moist. Extraocular movements were intact and pupils were equal round and reactive to light. Eyelids were unremarkable. PULMONARY: Unlabored respirations. Good breath sounds bilaterally. No audible rales rhonchi or wheezing was noted. CARDIOVASCULAR: There is a regular rate and rhythm without any murmurs gallops or rubs. Patien t's chest is tender to the left of the sternum as the only area of tenderness. Patient states that the exact pain she was feeling earlier ABDOMINAL: Abdomen soft and nontender SKIN: Skin is clear with no lesions or rashes and otherwise unremarkable. NEUROLOGIC: Patient is alert and oriented x3. Cranial nerves II through XII are grossly intact. Motor and sensory are also intact. Normal speech, volume and content. Symmetrical smile. MUSCULOSKELETAL: Normal extremities with adequate strength and full range of motion. LYMPHATICS: No significant lymphadenopathy is noted PSYCHIATRIC: Normal psychiatric evaluation. Limitations: no limitations Course Vital Signs 10/22/19 15:25 Temperature 98.8 F Pulse Rate 87 Respiratory 20 Rate Blood Pressure 125/86 O2 Sat by Pulse 100 Oximetry Medical Decision Making - Medical Decision Making EKG shows normal sinus rhythm at 71 bpm WA interval 136 QRS is 88 QT interval 372 QTC is 404. Patient's EKG shows no ST segment elevation or depression. Chest x-ray shows no acute abnormality. Patient received Toradol emergency department was feeling better after the Toradol shot. Patient states she has had this pain in the past and typically goes away on its own. Patient states it has been a couple of years since she's had it. - Lab Data Result diagrams: 10/22/19 15:50 10/22/19 15:50 Lab Results 10/22/19 10/22/19 10/22/19 Range/Units 15:50 15:50 15:50 WBC 7.8 (3.8-10.6) k/uL RBC 4.49 (3.80-5.40) m/uL Hgb 13.0 (11.4-16.0) gm/dL Hct 41.0 (34.0-46.0) % MCV 91.3 (80.0-100.0) fL MCH 29.1 (25.0-35.0) pg MCHC 31.9 (31.0-37.0) g/dL RDW 12.7 (11.5-15.5) % Plt Count 324 (150-450) k/uL Neutrophils % 69 % Lymphocytes % 21 % Monocytes % 6 % Eosinophils % 1 % Basophils % 0 % Neutrophils # 5.4 (1.3-7.7) k/uL Lymphocytes # 1.7 (1.0-4.8) k/uL Monocytes # 0.5 (0-1.0) k/uL Eosinophils # 0.1 (0-0.7) k/uL Basophils # 0.0 (0-0.2) k/uL PT 9.5 (9.0-12.0) sec INR 0.9 (<1.2) APTT 23.4 (22.0-30.0) sec Sodium 139 (137-145) mmol/L Potassium 4.3 (3.5-5.1) mmol/L Chloride 103 (98-107) mmol/L Carbon Dioxide 29 (22-30) mmol/L Anion Gap 7 mmol/L BUN 14 (7-17) mg/dL Creatinine 0.69 (0.52-1.04) mg/dL Est GFR (CKD-EPI)AfAm >90 (>60 ml/min/1.73 sqM) Est GFR (CKD-EPI)NonAf >90 (>60 ml/min/1.73 sqM) Glucose 105 H (74-99) mg/dL Calcium 9.7 (8.4-10.2) mg/dL Magnesium 2.0 (1.6-2.3) mg/dL Total Bilirubin 0.3 (0.2-1.3) mg/dL AST 26 (14-36) U/L ALT 14 (4-34) U/L Alkaline Phosphatase 63 (38-126) U/L Troponin I (0.000-0.034) ng/mL Total Protein 7.6 (6.3-8.2) g/dL Albumin 4.5 (3.5-5.0) g/dL 10/22/19 Range/Units 15:50 WBC (3.8-10.6) k/uL RBC (3.80-5.40) m/uL Hgb (11.4-16.0) gm/dL Hct (34.0-46.0) % MCV (80.0-100.0) fL MCH (25.0-35.0) pg MCHC (31.0-37.0) g/dL RDW (11.5-15.5) % Plt Count (150-450) k/uL Neutrophils % % Lymphocytes % % Monocytes % % Eosinophils % % Basophils % % Neutrophils # (1.3-7.7) k/uL Lymphocytes # (1.0-4.8) k/uL Monocytes # (0-1.0) k/uL Eosinophils # (0-0.7) k/uL Basophils # (0-0.2) k/uL PT (9.0-12.0) sec INR (<1.2) APTT (22.0-30.0) sec Sodium (137-145) mmol/L Potassium (3.5-5.1) mmol/L Chloride (98-107) mmol/L Carbon Dioxide (22-30) mmol/L Anion Gap mmol/L BUN (7-17) mg/dL Creatinine (0.52-1.04) mg/dL Est GFR (CKD-EPI)AfAm (>60 ml/min/1.73 sqM) Est GFR (CKD-EPI)NonAf (>60 ml/min/1.73 sqM) Glucose (74-99) mg/dL Calcium (8.4-10.2) mg/dL Magnesium (1.6-2.3) mg/dL Total Bilirubin (0.2-1.3) mg/dL AST (14-36) U/L ALT (4-34) U/L Alkaline Phosphatase (38-126) U/L Troponin I <0.012 (0.000-0.034) ng/mL Total Protein (6.3-8.2) g/dL Albumin (3.5-5.0) g/dL Disposition Clinical Impression: Chest wall pain Disposition: HOME SELF-CARE Condition: Good Instructions (If sedation given, give patient instructions): Chest Wall Pain (ED) Prescriptions: Ketorolac [Toradol] 10 mg PO Q6HR #15 tab Is patient prescribed a controlled substance at d/c from ED?: No Referrals: Priya Asencio DO [Primary Care Provider] - 1-2 days Time of Disposition: 17:26
[2019-10-22 16:03] LABS: Basophils % (A) 0 %; Eosinophils # (A) 0.1 k/uL (0-0.7); Eosinophils % (A) 1 %; Lymphocytes # (A) 1.7 k/uL (1.0-4.8); Lymphocytes % (A) 21 %; MCH 29.1 pg (25.0-35.0); MCHC 31.9 g/dL (31.0-37.0); MCV 91.3 fL (80.0-100.0); Mean Platelet Volume 7.8; Monocytes # (A) 0.5 k/uL (0-1.0); Monocytes % (A) 6 %; Neutrophils # (A) 5.4 k/uL (1.3-7.7); Neutrophils % (A) 69 %; Platelet Count 324 k/uL (150-450); RBC 4.49 m/uL (3.80-5.40); RDW 12.7 % (11.5-15.5); WBC 7.8 k/uL (3.8-10.6)
[2019-10-22 16:11] LABS: ALT 14 U/L (4-34); AST 26 U/L (14-36); African American GFR (CKD) >90 (>60 ml/min/1.73 sqM); Albumin 4.5 g/dL (3.5-5.0); Alkaline Phosphatase 63 U/L (38-126); Anion Gap 7 mmol/L; Blood Urea Nitrogen 14 mg/dL (7-17); Calcium 9.7 mg/dL (8.4-10.2); Carbon Dioxide 29 mmol/L (22-30); Chloride 103 mmol/L (98-107); Glucose 105 mg/dL (74-99); INR 0.9 (<1.2); Non-African American GFR(CKD) >90 (>60 ml/min/1.73 sqM); Partial Thromboplastin Time 23.4 sec (22.0-30.0); Potassium 4.3 mmol/L (3.5-5.1); Prothrombin Time 9.5 sec (9.0-12.0); Sodium 139 mmol/L (137-145); Total Bilirubin 0.3 mg/dL (0.2-1.3); Total Protein 7.6 g/dL (6.3-8.2)
--- NOTE | 2019-10-22 17:20 | XR ---
EXAMINATION: XR chest 2V DATE AND TIME: 10/22/2019 5:11 PM CLINICAL INDICATION: PHH; Chest Pain TECHNIQUE: Departmental protocol COMPARISON: 09/24/2015 FINDINGS: The lungs are clear. The pleural spaces are negative. The cardiac silhouette is not enlarged. The remainder of the mediastinal silhouette is unremarkable. The skeletal structures and soft tissues are negative for acute findings. IMPRESSION: NO ACUTE PROCESS.
[2019-10-22 18:36] VITALS: BP 105/72; PULSE 65; RESP 18
== END 2019-10-22 18:36 | disposition home or self-care (01) ==
LOC: EC 15:22
DX: R07.89 Other chest pain (principal); R06.00 Dyspnea, unspecified; E06.3 Autoimmune thyroiditis; Z79.890 Hormone replacement therapy; Z91.018 Allergy to other foods; Z98.890 Other specified postprocedural states
CPT/HCPCS: 36415; 93005; 80053; 83735; 84484; 85025; 85610; 85730; 71046; 96374; 99284; J1885

== ENCOUNTER → 2021-05-25 | Outpatient (CLI) | payer BC ==
[2021-05-25 19:02] LABS: Basophils # (A) 0.04 X 10*3/uL (0.00-0.10); Basophils % (A) 0.7 %; Eosinophils # (A) 0.05 X 10*3/uL (0.04-0.35); Eosinophils % (A) 0.9 %; HCT 43.6 % (37.2-46.3); HGB 13.4 g/dL (12.0-15.0); Lymphocytes # (A) 1.67 X 10*3/uL (0.90-5.00); Lymphocytes % (A) 29.3 %; MCH 28.1 pg (27.0-32.0); MCHC 30.7 g/dL (32.0-37.0); MCV 91.4 fL (80.0-97.0); Mean Platelet Volume 11.4 fL (9.5-12.2); Monocytes % (A) 8.8 %; Neutrophils # (A) 3.42 X 10*3/uL (1.80-7.70); Neutrophils % (A) 60.1 %; Platelet Count 372 X 10*3/uL (140-440); RBC 4.77 X 10*6/uL (4.10-5.20); RDW 13.8 % (11.5-14.5); WBC 5.69 X 10*3/uL (4.50-10.00)
[2021-05-25 22:55] LABS: Insulin Level 34.7 mIU/mL (3.0-25.0)
[2021-05-26 03:43] LABS: ALT 12 U/L (8-44); AST 17 U/L (13-35); African American GFR (CKD) 121.7 (60.0-200.0); Albumin 4.4 g/dL (3.8-4.9); Albumin/Globulin Ratio 1.65 (1.60-3.17); Alkaline Phosphatase 76 U/L (41-126); BUN/Creat Ratio 17.34 Ratio (12.00-20.00); Calcium 9.3 mg/dL (8.7-10.3); Carbon Dioxide 23.5 mmol/L (20.0-27.5); Chloride 103 mmol/L (96-109); Chol/HDL Ratio 4.19 Ratio; Ferritin 44.3 ng/mL (10.0-291.0); Globulin 2.7 g/dL (1.6-3.3); Glucose 100 mg/dL (70-110); LDL Cholesterol,Calculated 126.3 mg/dL (0.0-131.0); Potassium 4.4 mmol/L (3.5-5.5); Sodium 139 mmol/L (135-145); Total Protein 7.1 g/dL (6.2-8.2)
== END | disposition home or self-care (01) ==
LOC: LABWHC1 11:48
PROVIDERS: ATTEND Obstetrics & Gynecology Obstetrics
DX: E06.3 Autoimmune thyroiditis (principal)
CPT/HCPCS: 36415; 80053; 80061; 82306; 82607; 82728; 83036; 83090; 83525; 84140; 84439; 84443; 84481; 84482; 85025; 86140; 86376

== ENCOUNTER → 2021-08-28 | Outpatient (CLI) | payer BC ==
[2021-08-28 20:06] LABS: T4, Free (Free Thyroxine) 0.86 ng/dL (0.800-1.800)
== END | disposition home or self-care (01) ==
LOC: LABWHC1 12:08
PROVIDERS: ATTEND Obstetrics & Gynecology Obstetrics
DX: E06.3 Autoimmune thyroiditis (principal); B37.9 Candidiasis, unspecified; E56.9 Vitamin deficiency, unspecified; R63.5 Abnormal weight gain; R73.9 Hyperglycemia, unspecified
CPT/HCPCS: 36415; 84439; 84443; 84481; 84482; 86376; 86800

== ENCOUNTER → 2022-10-23 | Outpatient (CLI) | payer BC ==
[2022-10-23 15:06] LABS: Basophils # (A) 0.04 X 10*3/uL (0.00-0.10); Basophils % (A) 0.8 %; Eosinophils # (A) 0.08 X 10*3/uL (0.04-0.35); Eosinophils % (A) 1.6 %; HCT 44.4 % (37.2-46.3); HGB 13.8 g/dL (12.0-15.0); Immature Grans, Automated 0.2 %; Lymphocytes # (A) 2.11 X 10*3/uL (0.90-5.00); Lymphocytes % (A) 41.9 %; MCH 29.2 pg (27.0-32.0); MCHC 31.1 g/dL (32.0-37.0); MCV 93.9 fL (80.0-97.0); Mean Platelet Volume 11.8 fL (9.5-12.2); Monocytes # (A) 0.64 X 10*3/uL (0.20-1.00); Monocytes % (A) 12.7 %; NRBC Per 100 WBC 0 /100 WBCS (0.0-0.0); Neutrophils # (A) 2.16 X 10*3/uL (1.80-7.70); Neutrophils % (A) 42.8 %; Platelet Count 300 X 10*3/uL (140-440); RBC 4.73 X 10*6/uL (4.10-5.20); RDW 13.6 % (11.5-14.5); WBC 5.04 X 10*3/uL (4.50-10.00)
[2022-10-23 15:42] LABS: ALT 20 U/L (8-44); AST 24 U/L (13-35); African American GFR (CKD) 112.4 (60.0-200.0); Albumin 4.5 g/dL (3.8-4.9); Albumin/Globulin Ratio 1.84 (1.60-3.17); Alkaline Phosphatase 80 U/L (41-126); BUN/Creat Ratio 14.71 Ratio (12.00-20.00); Blood Urea Nitrogen 10.9 mg/dL (9.0-27.0); Calcium 9.4 mg/dL (8.7-10.3); Carbon Dioxide 23.9 mmol/L (20.0-27.5); Chloride 105 mmol/L (96-109); Chol/HDL Ratio 4.13 Ratio; Globulin 2.5 g/dL (1.6-3.3); Glucose 110 mg/dL (70-110); Potassium 4.5 mmol/L (3.5-5.5); Sodium 140 mmol/L (135-145)
== END | disposition home or self-care (01) ==
LOC: LABWHC1 09:25
PROVIDERS: ATTEND Family Medicine
DX: E03.9 Hypothyroidism, unspecified (principal); E78.5 Hyperlipidemia, unspecified
CPT/HCPCS: 36415; 80053; 80061; 84439; 84443; 84481; 85025